=== PATIENT | male | born 1955 | race Caucasian/White ===

== ENCOUNTER 2017-09-28 09:56 | Day surgery (SDC) | payer BC, OTHER ==
[~2017-09-28 09:56] MED LIST: PHENYLEPHRINE HCL 10 % OPHTH. SOL 5ML OD; PROPARACAINE 0.5% OPHTH SOL 15ML OS
[2017-09-28] MEDS: LIDOCAINE 3.5 % 1ML OPHTH TOPICAL GEL OU (10:45)
[2017-09-28] MEDS: OFLOXACIN 0.3 % (OCUFLOX) OPTH SOL 5ML OD (10:47)
[2017-09-28] MEDS: CYCLOPENTOLATE 2% OPHTH SOLN 2ML BTL OD (10:47)
[2017-09-28] MEDS: PHENYLEPHRINE 2.5% OPHTH SOL 2ML OD (10:48)
[2017-09-28] MEDS: TROPICAMIDE 1% OPHTH SOLN 2ML OD (10:48)
[2017-09-28] MEDS: POVIDONE-IODINE 5% OPHTH PREP SOL 30ML As Ordered (11:53)
[2017-09-28] MEDS: HEALON DUET (HEALON 10MG/ML 0.55ML & HEALON ENDOCOAT 30MG/ML 0.85ML) As Ordered (11:53)
[2017-09-28] MEDS: BALANCED SALT IRRIGATION SOLUTION 500ML BAG (FOR OR EYE MACHINE) As Ordered (11:53)
[2017-09-28] MEDS: LIDOCAINE 1% SDV 5 ML VIAL As Ordered (11:54)
[2017-09-28] MEDS: CEFUROXIME 1MG/0.1ML INTRACAMERAL INJ As Ordered (11:54)
[2017-09-28] MEDS ORDERED: fentaNYL 100 MCG/2 ML INJECTION (J3010) As Ordered (12:15)
[2017-09-28] MEDS ORDERED: MIDAZOLAM INJ 2 MG/2 ML VIAL (J2250) As Ordered (12:15)
[2017-09-28] MEDS ORDERED: TRIMETHOBENZAMIDE 300 MG CAP PO (12:15)
[2017-09-28] MEDS: AcetaZOLAMIDE 500 MG ER CAP PO (12:24)
[2017-09-28] MEDS: KETOROLAC 0.5% OPHTH SOLN OS (12:24)
[2017-09-28] MEDS: ACETAMINOPHEN 325 MG TAB PO (12:33)
== END 2017-09-28 12:44 | disposition home or self-care (01) ==
LOC: M SDC 09:56
DX: H25.12 Age-related nuclear cataract, left eye (principal); E03.9 Hypothyroidism, unspecified; K21.9 Gastro-esophageal reflux disease without esophagitis; G47.30 Sleep apnea, unspecified; Z87.891 Personal history of nicotine dependence; Z79.899 Other long term (current) drug therapy; Z79.82 Long term (current) use of aspirin
CPT/HCPCS: 66984

== ENCOUNTER → 2022-12-02 | Outpatient (CLI) | payer BC, OTHER ==
[~2022-12-02] MED LIST changes: +ASPI1CHW2 PO; +LEVO25TA5 PO; +PANT40TA29 PO; -PHENYLEPHRINE HCL 10 % OPHTH. SOL 5ML OD; -PROPARACAINE 0.5% OPHTH SOL 15ML OS; +STEL90IN INJ; +VITA100066 PO
== END ==
LOC: M PLARAD 09:45
PROVIDERS: ATTEND Physician Assistant Medical
DX: H90.41 Sensorineural hearing loss, unilateral, right ear, with unrestricted hearing on the contralateral side (principal)